=== PATIENT | female | born 1935 | race Caucasian/White ===

== ENCOUNTER 2018-07-19 08:13 | Inpatient (IN) | payer OTHER, MEDICARE ==
[~2018-07-19] VITALS: Ht 157.5 cm; Wt 72.6 kg
[2018-07-19 08:18] VITALS: BP 217/68
[2018-07-19 09:08] LABS: ABSOLUTE NEUTROPHILS 13.7 thou/uL (1.4-8.2); BASOPHILS 0.6 % (0.0-2.0); EOSINOPHILS 0.7 % (0.0-3.0); HEMATOCRIT 44.7 % (37.0-47.0); HEMOGLOBIN 15.5 gm/dL (12.0-15.0); LYMPHOCYTES 10.2 % (24.0-44.0); MCH 34.2 pg (26.0-34.0); MCHC 34.6 g/dL (28.0-37.0); MCV 98.9 fL (80.0-100.0); MONOCYTES 7.3 % (1.0-8.0); PLATELET COUNT 306 thou/uL (150-400); POLYS 81.2 % (36.0-66.0); RBC 4.51 mil/uL (4.20-5.00); RDW 13.1 % (10.5-14.5); WBC 16.9 thou/uL (4.0-11.0)
[2018-07-19 09:11] LABS: CREATININE 1.1 mg/dL (0.6-1.0); POTASSIUM 4.5 mmol/L (3.5-5.1)
[2018-07-19 09:17] LABS: ALBUMIN 4.7 g/dL (3.4-5.0); DIRECT BILIRUBIN 0.1 mg/dL (<0.1-0.3); TOTAL BILIRUBIN 0.6 mg/dL (<0.1-1.0); TOTAL PROTEIN 9.1 g/dL (6.4-8.2)
[2018-07-19 09:42] LABS: URINE BILIRUBIN NEGATIVE (Negative); URINE BLOOD NEGATIVE (Negative); URINE CLARITY SL CLOUDY; URINE COLOR YELLOW; URINE GLUCOSE-RANDOM* NEGATIVE (Negative); URINE KETONES NEGATIVE (Negative); URINE NITRITE-REFLEX NEGATIVE (Negative); URINE PROTEIN (DIPSTICK) 2+ (Negative); URINE UROBILINOGEN 0.2 E.U./dl (0.2-1.0)
[2018-07-19 09:47] LABS: URINE LEUKOCYTES-REFLEX TRACE (Negative)
[2018-07-19 10:08] LABS: SQUAMOUS 0-3 Few /LPF (0-3)
[2018-07-19 10:09] LABS: BACTERIA-REFLEX >30 Many /HPF (None Seen); CASTS None Seen /LPF (None Seen); CRYSTALS None Seen /LPF (None Seen); URINE RBC None Seen /HPF (0-2); URINE WBC-REFLEX 6-15 Few /HPF (0-5)
[2018-07-19 13:28] VITALS: BP 141/51
[2018-07-19 16:38] VITALS: BP 137/47
[2018-07-19 19:50] VITALS: BP 136/66
[2018-07-19 22:45] VITALS: BP 139/39
[2018-07-20 03:45] VITALS: BP 122/47
[2018-07-20 05:12] LABS: CREATININE 0.9 mg/dL (0.6-1.0)
[2018-07-20 05:15] LABS: ALBUMIN 3.1 g/dL (3.4-5.0); PHOSPHORUS 3.2 mg/dL (2.5-4.9)
[2018-07-20 05:16] LABS: CALCIUM 7.8 mg/dL (8.5-10.1); POTASSIUM 3.3 mmol/L (3.5-5.1)
[2018-07-20 05:21] LABS: HEMATOCRIT 34.2 % (37.0-47.0); MCH 34.4 pg (26.0-34.0); MCHC 34.7 g/dL (28.0-37.0); MCV 99.2 fL (80.0-100.0); RBC 3.45 mil/uL (4.20-5.00); RDW 13.3 % (10.5-14.5); WBC 7.2 thou/uL (4.0-11.0)
[2018-07-20 05:30] LABS: HEMOGLOBIN 11.9 gm/dL (12.0-15.0)
[2018-07-20 07:45] VITALS: BP 125/36
[2018-07-20 16:20] VITALS: BP 137/48
[2018-07-20 21:14] VITALS: BP 141/41
[2018-07-21 04:14] VITALS: BP 128/43
[2018-07-21 05:11] LABS: ALBUMIN 2.8 g/dL (3.4-5.0); CREATININE 0.8 mg/dL (0.6-1.0); PHOSPHORUS 2.6 mg/dL (2.5-4.9); POTASSIUM 3.8 mmol/L (3.5-5.1)
[2018-07-21 07:57] VITALS: BP 152/45
[2018-07-21] MEDS ORDERED: SYNTHROID125 MC1 PO (14:19)
[2018-07-21] MEDS ORDERED: MIRALAX17 GM PO (14:19)
[2018-07-21] MEDS ORDERED: FLAGYL500 M1 PO (14:19)
[2018-07-21] MEDS ORDERED: PROTONIX40 M1 PO (14:19)
[2018-07-21] MEDS ORDERED: PROBIOTIC1 EAC1 PO (14:19)
[2018-07-21] MEDS ORDERED: OXYBUTYNIN 5 MG5 M2 PO (14:19)
[2018-07-21] MEDS ORDERED: CEFUROXIME500 MG PO (14:38)
[2018-07-21] MEDS ORDERED: LOPERAMIDE 2 MG2 M1 PO (15:11)
[2018-07-21 15:15] VITALS: BP 152/45
== END 2018-07-21 15:58 | disposition home or self-care (01) | DRG 683 ==
LOC: ER 08:13 → EROBS 14:23 → 4E 14:23
PROVIDERS: Emergency Medicine; ADMIT Hospitalist
DX: N17.0 Acute kidney failure with tubular necrosis (principal); N39.0 Urinary tract infection, site not specified; E87.2 Acidosis; K52.9 Noninfective gastroenteritis and colitis, unspecified; I10 Essential (primary) hypertension; K21.9 Gastro-esophageal reflux disease without esophagitis; D72.829 Elevated white blood cell count, unspecified; E86.0 Dehydration; Z60.2 Problems related to living alone; M62.84 Sarcopenia; E87.6 Hypokalemia; M19.90 Unspecified osteoarthritis, unspecified site; E66.9 Obesity, unspecified; N32.81 Overactive bladder; Z79.899 Other long term (current) drug therapy; Z90.710 Acquired absence of both cervix and uterus; Z88.8 Allergy status to other drugs, medicaments and biological substances; Z68.29 Body mass index [BMI] 29.0-29.9, adult
CPT/HCPCS: 10084

== ENCOUNTER → 2019-08-14 | Outpatient (CLI) | payer OTHER, MEDICARE ==
[~2019-08-14] MED LIST: CEFUROXIME500 MG PO; FLAGYL500 M1 PO; LOPERAMIDE 2 MG2 M1 PO; MIRALAX17 GM PO; OXYBUTYNIN 5 MG5 M2 PO; PROBIOTIC1 EAC1 PO; PROTONIX40 M1 PO; SYNTHROID125 MC1 PO
== END ==
LOC: SJCVCIMAG 07:29
DX: I08.0 Rheumatic disorders of both mitral and aortic valves (principal); R94.31 Abnormal electrocardiogram [ECG] [EKG]; I10 Essential (primary) hypertension; E78.00 Pure hypercholesterolemia, unspecified

== ENCOUNTER → 2019-11-28 | Outpatient (CLI) | payer OTHER, MEDICARE | LOC: RAD 10:31 | DX: Z12.31 Encounter for screening mammogram for malignant neoplasm of breast (principal) ==

== ENCOUNTER → 2020-02-27 | Outpatient (CLI) | payer OTHER, MEDICARE | LOC: SJCVC 13:26 | PROVIDERS: ATTEND Internal Medicine Cardiovascular Disease | DX: R94.31 Abnormal electrocardiogram [ECG] [EKG] (principal); I44.0 Atrioventricular block, first degree; I45.4 Nonspecific intraventricular block; R00.1 Bradycardia, unspecified; I10 Essential (primary) hypertension; E78.00 Pure hypercholesterolemia, unspecified; Z79.899 Other long term (current) drug therapy ==

== ENCOUNTER → 2020-11-28 | Outpatient (CLI) | payer OTHER, MEDICARE | LOC: SJCVC 13:50 | PROVIDERS: ATTEND Internal Medicine Cardiovascular Disease | DX: R07.9 Chest pain, unspecified (principal); I10 Essential (primary) hypertension; E78.00 Pure hypercholesterolemia, unspecified; R60.9 Edema, unspecified; I44.7 Left bundle-branch block, unspecified; M19.90 Unspecified osteoarthritis, unspecified site; R60.0 Localized edema; K21.9 Gastro-esophageal reflux disease without esophagitis; E03.9 Hypothyroidism, unspecified; Z88.8 Allergy status to other drugs, medicaments and biological substances; Z79.82 Long term (current) use of aspirin; Z79.899 Other long term (current) drug therapy ==

== ENCOUNTER → 2021-01-09 | Outpatient (CLI) | payer OTHER, MEDICARE | LOC: BC 14:18 | PROVIDERS: ATTEND Family Medicine | DX: Z12.31 Encounter for screening mammogram for malignant neoplasm of breast (principal) ==